=== PATIENT | female | born 1945 | race Caucasian/White ===

== ENCOUNTER 2023-01-09 15:44 | Emergency (ER) | payer MEDICARE, OTHER, SELFPAY ==
--- NOTE | ~2023-01-09 | CT_ITS ---
EXAMINATION: CTA abdomen pelvis DATE: 01/09/2023 18:09 INDICATION: Generalized abdominal pain. TECHNIQUE: Computed tomographic angiography (CTA) of the abdomen and pelvis was performed with 100 mL Omnipaque-350 intravenous contrast. Automated exposure control and iterative reconstruction techniqu e were employed. The dose-length product was 988.84 mGy-cm. Maximum intensity projection 3D-reconstru ctions of the aorta and other arteries were constructed by the technologist on a separate workstation . COMPARISON: None. FINDINGS: The visualized portions of the lung bases demonstrate mild atelectasis. No pleural effusion . The heart size is normal. No pericardial effusion. There are pacer wires in right atrium and right ventricle. There are cysts in the liver measuring up to 6 mm. There are changes of cholecystectomy. T here is mild splenomegaly. The pancreas and adrenal glands are normal. There is mild atrophy of the k idneys. There is diverticulosis of the colon without evidence of diverticulitis. The appendix is norm al. There is wall thickening of many loops of small bowel with areas of mesenteric edema, consistent with enteritis. The bowel is normal in caliber. There is a small volume of ascites. There are no path ologically enlarged lymph nodes. Abdominal aorta is normal. There is no significant stenosis of manisha c axis, superior mesenteric artery, the renal arteries, or inferior mesenteric artery. There is mild lumbar spondylosis. There are bridging endplate osteophytes at multiple levels in the thoracic spine, consistent with diffuse idiopathic skeletal hyperostosis (DISH). IMPRESSION: 1. Enteritis. 2. Small volume of ascites. 3. No significant arterial occlusive disease. Reviewed, dictated and finalized at location E.
[2023-01-09 15:46] VITALS: BP 138/86; PULSE 75; RESP 16; TEMP 36.4; O2SAT 100
[2023-01-09 16:20] LABS: Basophils Percent Auto 0.5 % (0.2-1.2); Eosinophils Absolute Auto 0.2 K/mm3 (0-0.3); Eosinophils Percent Auto 3.5 % (0-4.4); Hematocrit 42.2 % (37.0-47.0); Hemoglobin 13.9 g/dL (12.0-15.0); Immature Granulocyte Absolute 0.02 K/mm3 (0.00-0.031); Immature Granulocyte Percent A 0.3 % (0-0.5); Lymphocytes Percent Auto 31.4 % (18.3-44.2); Mean Corpuscular HGB Conc 32.9 g/dl (32-36); Mean Corpuscular Hemoglobin 29.2 pg (26-34); Mean Corpuscular Volume 88.7 fl (80-100); Mean Platelet Volume 10.2 fl (7.4-10.4); Monocytes Absolute Auto 0.4 K/mm3 (0.1-0.6); Monocytes Percent Auto 6.8 % (2.6-8.5); Neutrophils Absolute Auto 3.5 K/mm3 (1.3-6.7); Neutrophils Percent Auto 57.5 % (45.5-73.1); Platelet Count Result 149 k/mm3 (150-375); Red Blood Count 4.76 M/mm3 (4.2-5.4); White Blood Count 6.1 K/mm3 (4.5-10.0)
[2023-01-09 16:32] LABS: Alanine Aminotransferase 17 U/L (6-35); Albumin Level 4.3 g/dL (3.5-5.1); Alkaline Phosphatase 70 U/L (38-126); Anion Gap 9 mmol/L (8-16); Aspartate Amino Transferase 29 U/L (14-36); Bilirubin,Total 0.6 mg/dL (0.2-1.3); Blood Urea Nitrogen 28 mg/dL (7-17); Calcium 8.9 mg/dL (8.4-10.2); Carbon Dioxide 25 mmol/L (22-30); Chloride 103 mmol/L (98-107); Estimated CRCL calculation 44 ml/min; Estimated Glomerular Filt Rate 54; Glucose 111 mg/dL (65-110); Lipase 211 U/L (23-300); Potassium 3.8 mmol/L (3.4-5.0); Sodium 137 mmol/L (137-145)
[2023-01-09 17:31] VITALS: BP 157/89; PULSE 91; RESP 20; TEMP 36.6; O2SAT 98
--- NOTE | 2023-01-09 17:36 | ECG_ITS ---
Measurements Intervals [place] Rate: 70 P: 140 IN: 176 QRS: -2 QRSD: 77 T: 45 QT: 367 QTc: 396 Interpretive Statements ELECTRONIC ATRIAL PACEMAKER ABNORMAL RHYTHM ECG NO PREVIOUS ECG AVAILABLE FOR COMPARISON Electronically Signed On 01-10-2023 14:54:05 CDT by Elysia Acuna M.D.
--- NOTE | 2023-01-09 17:41 | ED.ABDPAIN ---
HPI - Abdominal Pain General Chief Complaint: Abdominal Pain <FLACO Martin Last Filed: 01/09/23 17:47> Stated Complaint: abd pain <FLACO Martin Last Filed: 01/09/23 17:47> Time Seen by Provider: 01/09/23 17:27 <FLACO Martin Last Filed: 01/09/23 17:47> History of Present Illness HPI narrative: 77-year-old female with a history of pancreatitis, s/p pacemaker placement and atrial fibrillation who not anticoagulated due to history of thrombocytopenia reports for evaluation for generalized abdominal pain that radiates to her back since this morning. States pain started while she was driving her car. Patient reports associated nausea, no emesis or diarrhea. Reports the pain is significantly worse after eating. She is also reporting intermittent sharp substernal chest pains that occurred for only a few seconds at a time in the waiting room and has since resolved. She denies dyspnea, cough, congestion, fever, dysuria or hematuria. She does report decreased urine output today. Of note, she does report history of similar symptoms where here blood pressure eventually bottomed out and had to be resuscitated. She has been evaluated by multiple specialists including a GI doctor and they have not been able to figure out the cause. <FLACO Martin Last Filed: 01/09/23 17:47> Related Data Allergies/Adverse Reactions: Allergies Allergy/AdvReac Type Severity Reaction Status Date / Time No Known Allergies Allergy Verified 01/09/23 15:59 <Raeann Cotto PA-C - Last Filed: 01/09/23 17:47> Review of Systems Review of Systems: CONSTITUTIONAL: Denies fever, chills EYES: Denies visual changes, redness, or discharge. ENT: Denies rhinorrhea, congestion, sore throat, or otalgia. CARDIOVASCULAR: Denies chest pain, palpitations, or edema. RESPIRATORY: Denies cough or dyspnea. GASTROINTESTINAL: See HPI GENITOURINARY: See HPI SKIN: Denies rash or itching. MSK: See HPI NEUROLOGIC: Denies headache, numbness, dizziness, or weakness. PSYCHIATRIC: Denies anxiety or depression. <FLACO Martin Last Filed: 01/09/23 17:47> Exam Narrative: GENERAL: Well-appearing, in no acute distress. HEAD: Normocephalic EYES: Normal conjunctiva ENT: Nares clear. Mucous membranes moist. NECK: Supple. CHEST: No respiratory distress. HEART: Regular rate and rhythm. ABDOMEN: Normal active bowel sounds. Abdomen soft with generalized tenderness and guarding, worse in the right upper quadrant and left lower quadrant. No CVA tenderness. EXTREMITIES: No edema. SKIN: Warm, dry, no rash. NEURO: No focal deficits. PSYCH: Normal mood and affect. <Raeann Cotto PA-C - Last Filed: 01/09/23 17:47> Course Course Emergency Course: When I interviewed the patient, the only added piece of history is that she did have some viral symptoms and a bit of an upset stomach starting a few days ago. Reevaluation 2049: Patient feeling much improved and ready to go home. <Abel Westfall PA-C - Last Filed: 01/10/23 02:25> Vital Signs Vital signs: Vital Signs Temperature 97.5 F L 01/09/23 15:46 Pulse Rate 75 01/09/23 15:46 Respiratory Rate 16 01/09/23 15:46 Blood Pressure 138/86 01/09/23 15:46 Pulse Oximetry 100 01/09/23 15:46 Oxygen Delivery Room Air 01/09/23 15:46 Temperature 97.9 F 01/09/23 17:31 Pulse Rate 65 01/09/23 21:09 Respiratory Rate 18 01/09/23 21:09 Blood Pressure 112/59 L 01/09/23 21:09 Pulse Oximetry 98 01/09/23 21:09 Oxygen Delivery Room Air 01/09/23 15:46 <Raeann Cotto PA-C - Last Filed: 01/09/23 17:47> Vital Signs Temperature 97.5 F L 01/09/23 15:46 Pulse Rate 75 01/09/23 15:46 Respiratory Rate 16 01/09/23 15:46 Blood Pressure 138/86 01/09/23 15:46 Pulse Oximetry 100 01/09/23 15:46 Oxygen Delivery Room Air 01/09/23 15:46 Temperature 97.9 F 01/09/23 17:31 Pulse Rat
[2023-01-09] MEDS: ACETAMINOPHEN 500 MG TABLET 1000 MG PO (17:50)
[2023-01-09] MEDS: PROMETHAZINE HCL 25 MG/ML AMPUL 12.5 MG IV PUSH (17:50)
[2023-01-09 18:02] LABS: Lactic Acid Reflex 0.8 mmol/L (0.7-2.0)
[2023-01-09 18:03] LABS: Partial Thromboplastin Time 22.1 SECONDS (22.3-36.8); Prothrombin Time 13.1 Seconds (11.1-14.7)
[2023-01-09 18:14] LABS: Troponin I < 0.012 ng/mL (0.000-0.034)
[2023-01-09 18:55] VITALS: BP 124/70; PULSE 63; RESP 20; O2SAT 98
[2023-01-09 19:44] VITALS: BP 119/63; PULSE 71; RESP 18; O2SAT 98
[2023-01-09] MEDS: HYDROmorphone HCL INJ (*CRX) 1 MG/ML SYR 0.5 MG IV PUSH (19:49)
[2023-01-09 19:52] LABS: Appearance Urine Clear (Clear); Bilirubin Urine Negative (Negative); Blood Urine Negative (Negative); Color Urine Yellow (Yellow); Glucose Urine UA Negative (Negative); Ketones Urine Negative (Negative); Leukocyte Esterase Ur Negative LEU/UL (Negative); Nitrate Urine Negative (Negative); Protein Urine Negative (Negative); Urobilinogen Urine 0.2 mg/dL (<2.0); pH Urine 5.5 (5.0-9.0)
[2023-01-09 19:54] LABS: Specific Grav Ur 1.041 (1.001-1.035)
[2023-01-09 19:55] LABS: Add Urine Microscopic? NO
[2023-01-09] MEDS: ONDANSETRON INJ 4 MG/2 ML VIAL IV PUSH (20:04)
[2023-01-09] MEDS: SODIUM CHLORIDE 0.9% IV 500 ML 999 ML IV CONT (20:04)
[2023-01-09 20:43] VITALS: BP 107/67; PULSE 71; RESP 18; O2SAT 95
[2023-01-09 21:09] VITALS: BP 112/59; PULSE 65; RESP 18; O2SAT 98
== END 2023-01-09 21:11 | disposition home or self-care (01) ==
PROVIDERS: Emergency Medicine; Physician Assistant; Emergency Provider Physician Assistant
DX: K52.9 Noninfective gastroenteritis and colitis, unspecified (principal); I48.91 Unspecified atrial fibrillation; D69.6 Thrombocytopenia, unspecified; Z95.0 Presence of cardiac pacemaker
CPT/HCPCS: 36415; 74174; 80053; 81003; 83605; 83690; 84484; 85025; 85055; 85610; 85730; 93005; 96361; 96374; 96375; 99284; A9270; J1170; J2405; J2550; J7040; Q9967

== ENCOUNTER 2023-04-22 03:54 | Emergency (ER) | payer MEDICARE, OTHER, SELFPAY ==
[2023-04-22 03:59] VITALS: BP 182/84; PULSE 95; RESP 15; TEMP 36.6; O2SAT 100
[2023-04-22] MEDS: diphenhydrAMINE HCl INJ 50 MG/ML VIAL IV PUSH (04:17)
[2023-04-22] MEDS: methylPREDNISolone SOD SUCC 125 MG VIAL IV PUSH (04:17)
[2023-04-22] MEDS: FAMOTIDINE 20 MG/2 ML VIAL IV PUSH (04:18)
--- NOTE | 2023-04-22 04:22 | ED.GENADULT ---
HPI - General Adult General Chief complaint: Allergic Reaction Stated complaint: facial swelling Time Seen by Provider: 04/22/23 04:10 History of Present Illness HPI narrative: patient is a 77-year-old female presents emergency department with chief complaint of facial swelling. The patient reports around 2:00 p.m. today she noticed that she started having some swelling around her lips patient reports no swelling of her tongue no dysphagia denies shortness of breath denies urticaria or other rash. Patient states she is unsure of anything that might have triggered it as she had her normal foods that she eats and no new medications no new makeup or other skin products. Related Data Allergies Allergy/AdvReac Type Severity Reaction Status Date / Time No Known Allergies Allergy Verified 04/22/23 04:01 Review of Systems Review of Systems: A 10 system review of systems was completed on the patient and is negative except for what is stated in the HPI. Nursing and ancillary documentation was reviewed. Exam Narrative: GENERAL: Well-appearing, well-nourished, and in no acute distress. HEAD: Normocephalic, atraumatic. EYES: PERRLA and EOMI. ENT: Nares clear, no rhinorrhea or epistaxis. Mucous membranes moist. Slight edema of the lips no tongue swelling no stridor NECK: Supple. CHEST: Clear to auscultation. No respiratory distress. HEART: Regular rate and rhythm. No murmur heard. Normal peripheral pulses. ABDOMEN: Soft, nontender, nondistended, normal active bowel sounds. EXTREMITIES: Normal range of motion. No edema. SKIN: Warm, dry, no rash. NEURO: No focal deficits. Alert and oriented x3. PSYCH: Normal mood and affect. Course Vital Signs Vital signs: Vital Signs Temperature 36.6 C 04/22/23 03:59 Pulse Rate 95 04/22/23 03:59 Respiratory Rate 15 04/22/23 03:59 Blood Pressure 182/84 H 04/22/23 03:59 Pulse Oximetry 100 04/22/23 03:59 Oxygen Delivery Room Air 04/22/23 03:59 Temperature 36.6 C 04/22/23 03:59 Pulse Rate 76 04/22/23 04:23 Respiratory Rate 15 04/22/23 04:23 Blood Pressure 156/87 H 04/22/23 04:23 Pulse Oximetry 98 04/22/23 04:23 Oxygen Delivery Room Air 04/22/23 03:59 Medical Decision Making MDM Narrative Medical decision making narrative: differential diagnosis of angioedema, who allergic reaction, the patient received Benadryl Solu-Medrol and Pepcid and is feeling much better this time the patient was observed in the emergency department and swelling subsequently gone down Vital Signs Vital Signs: Vital Signs Temperature 36.6 C 04/22/23 03:59 Pulse Rate 95 04/22/23 03:59 Respiratory Rate 15 04/22/23 03:59 Blood Pressure 182/84 H 04/22/23 03:59 Pulse Oximetry 100 04/22/23 03:59 Oxygen Delivery Room Air 04/22/23 03:59 Temperature 36.6 C 04/22/23 03:59 Pulse Rate 76 04/22/23 04:23 Respiratory Rate 15 04/22/23 04:23 Blood Pressure 156/87 H 04/22/23 04:23 Pulse Oximetry 98 04/22/23 04:23 Oxygen Delivery Room Air 04/22/23 03:59 Discharge Plan Discharge Clinical Impression: Allergic reaction Patient Disposition: Home, Self-Care Condition: Stable Instructions: Antibiotic Form, General Allergic Reaction (ED) Prescriptions: New prednisone 20 mg tablet 40 mg PO DAILY 5 Days Qty: 10 0RF Follow-up/Referrals: PHYSICIAN NOT ON STAFF,NONSTAFF [Non-Staff] - Time of Disposition: 06:03
[2023-04-22 04:23] VITALS: BP 156/87; PULSE 76; RESP 15; O2SAT 98
--- NOTE | 2023-04-22 04:28 | ECG_ITS ---
Measurements Intervals [place] Rate: 69 P: 141 TN: 194 QRS: 10 QRSD: 77 T: 44 QT: 388 QTc: 416 Interpretive Statements ELECTRONIC ATRIAL PACEMAKER ATYPICAL ECG COMPARED TO ECG 01/09/2023 17:41:59 NO SIGNIFICANT CHANGES Electronically Signed On 04-22-2023 6:51:58 COMMERCIAL ACCOUNTANT by Rigoberto Garcia D.O.
[2023-04-22 05:57] VITALS: BP 155/79; PULSE 73; RESP 16; O2SAT 99
--- NOTE | 2023-04-22 05:57 | PC.NURSE ---
Pts facial, lip, and tongue swelling has resolved.
== END 2023-04-22 06:43 | disposition home or self-care (01) ==
PROVIDERS: Emergency Provider Emergency Medicine
DX: T78.40XA Allergy, unspecified, initial encounter (principal); Z95.0 Presence of cardiac pacemaker; X58.XXXA Exposure to other specified factors, initial encounter
CPT/HCPCS: 93005; 96374; 96375; 99284; J1200; J2930